=== PATIENT | female | born 1985 | race Caucasian/White ===

== ENCOUNTER 2016-07-17 09:58 | Emergency (ER) | payer MEDICAID ==
[~2016-07-17] VITALS: Ht 162.6 cm; Wt 117.9 kg
[2016-07-17 10:02] VITALS: BP 120/70; PULSE 78; RESP 16; TEMP 97.7; O2SAT 99
--- NOTE | 2016-07-17 10:05 | NUR ---
ambulated to bed 8
--- NOTE | 2016-07-17 10:10 | NUR ---
ER at bedside examining patient.
--- NOTE | 2016-07-17 10:11 | NUR ---
Pt presents to ED c/o intermittent L knee pain w/ambulation.Pt denies significant med hx.Pt reports stepping down from stool on to Knee causing pain.
--- NOTE | 2016-07-17 10:17 | NUR ---
pt ambulated to restroom slow steady gait.
--- NOTE | 2016-07-17 10:30 | NUR ---
Pt tolerated immobilizer.
[2016-07-17 10:57] VITALS: BP 120/70; PULSE 78; RESP 16; TEMP 97.7; O2SAT 99
--- NOTE | 2016-07-17 10:57 | NUR ---
Patient given written and verbal discharge instructions and verbalizes understanding. ER MD discussed with patient the results and treatment provided. Given copies of tests performed in ER. Patient in stable condition. ID arm band removed. Patient educated on pain management and to follow up with PMD. Pain Scale 0. Opportunity for questions provided and answered.
== END 2016-07-17 10:57 | disposition home or self-care (01) ==
LOC: SED 09:58
DX: S83.92XA Sprain of unspecified site of left knee, initial encounter (principal); X50.1XXA Overexertion from prolonged static or awkward postures, initial encounter; Y93.89 Activity, other specified; Y92.89 Other specified places as the place of occurrence of the external cause; Y99.8 Other external cause status
CPT/HCPCS: 73560-TC; 81025; 99284

== ENCOUNTER 2018-03-09 17:06 | Emergency (ER) | payer MEDICAID ==
[~2018-03-09] VITALS: Ht 160 cm; Wt 117.9 kg
[2018-03-09 17:11] VITALS: BP_SYST 127
--- NOTE | 2018-03-09 17:16 | NUR ---
Pt placed in bed 8
--- NOTE | 2018-03-09 17:20 | NUR ---
Patient complaining of 5 episodes of hematuria this morning. Denies any burning or pain with urination. Denies any abdominal pain, nausea, vomiting or diarrhea. No other complaints/injuries per patient or as noted. Will continue to monitor.
--- NOTE | 2018-03-09 17:25 | NUR ---
LORI Tran at bedside examining patient.
--- NOTE | 2018-03-09 17:30 | NUR ---
Urine specimen collected and analyzed in ER. Results given to ER .
[2018-03-09 17:33] VITALS: BP_SYST 127
--- NOTE | 2018-03-09 17:33 | NUR ---
Patient given written and verbal discharge instructions and verbalizes understanding. ER MD discussed with patient the results and treatment provided. Patient in stable condition. ID arm band removed. Rx of Macrodantin and pyridium given. Patient educated on pain management and to follow up with PMD in 2-3 days. Pain Scale 0/10 Opportunity for questions provided and answered. Medication side effect fact sheet provided.
== END 2018-03-09 17:33 | disposition home or self-care (01) ==
LOC: SED 17:06
DX: N39.0 Urinary tract infection, site not specified (principal); E78.5 Hyperlipidemia, unspecified
CPT/HCPCS: 99283

== ENCOUNTER 2018-06-24 16:32 | Emergency (ER) | payer MEDICAID ==
[~2018-06-24] VITALS: Ht 162.6 cm; Wt 113.4 kg
[2018-06-24 16:45] VITALS: BP_SYST 120
== END 2018-06-24 17:20 | disposition home or self-care (01) ==
LOC: SED 16:32
DX: L02.413 Cutaneous abscess of right upper limb (principal); E78.5 Hyperlipidemia, unspecified
CPT/HCPCS: 99283

== ENCOUNTER 2019-04-21 23:10 | Emergency (ER) | payer MEDICAID ==
[~2019-04-21] VITALS: Ht 162.6 cm; Wt 122.5 kg
[2019-04-21 23:15] VITALS: BP_SYST 125
--- NOTE | 2019-04-21 23:20 | NUR ---
Placed in room 4 . Placed on radiation monitor, blood pressure machine and pulse oximeter. To gown for exam. Side rails up. Report given to Joshua OSMAN.
--- NOTE | 2019-04-21 23:25 | NUR ---
Pt ambulates into ER bed with c/o fever, chills, cough, sore throat and intermittent nausea and vomiting. Pt states symptoms began approximately a week ago. Pt states stools are soft. Pt states throat pain is 5/10. Pt denies SOB and chest pain. Pt states she did not get flu shot this season.
--- NOTE | 2019-04-21 23:27 | NUR ---
ER at bedside examining patient.
[2019-04-22 01:16] VITALS: BP_SYST 114
--- NOTE | 2019-04-22 01:16 | NUR ---
Patient given written and verbal discharge instructions and verbalizes understanding. ER MD Lopez discussed with patient the results and treatment provided. Patient in stable condition. ID arm band removed. Rx of azithromycin and promethazine given. Patient educated on pain management and to follow up with PMD. Pain Scale 2/10. Opportunity for questions provided and answered. Medication side effect fact sheet provided.
== END 2019-04-22 01:16 | disposition home or self-care (01) ==
LOC: SED 23:10
DX: J02.9 Acute pharyngitis, unspecified (principal); R03.0 Elevated blood-pressure reading, without diagnosis of hypertension; E78.5 Hyperlipidemia, unspecified; Z87.19 Personal history of other diseases of the digestive system
CPT/HCPCS: 36415; 86710; 99283

== ENCOUNTER 2019-07-01 09:27 | Emergency (ER) | payer MEDICAID ==
[~2019-07-01] VITALS: Ht 162.6 cm; Wt 135.2 kg
[2019-07-01 09:31] VITALS: BP_SYST 128
--- NOTE | 2019-07-01 09:39 | NUR ---
Patient triaged and placed in waiting room. VSS and patient appears in no acute distress at this time. Awaiting available bed, and MD notified of need for MSE.
[2019-07-01 10:20] LABS: BILIRUBIN,URINE 2+ (NEGATIVE); BLOOD, URINE 3+ (NEGATIVE); CLARITY/URINE CLEAR (CLEAR); COLOR,URINE RED (YELLOW); GLUCOSE,URINE NEGATIVE (NEGATIVE); KETONES,URINE NEGATIVE (NEGATIVE); LEUKOCYTE ESTERASE ,URINE 3+ (NEGATIVE); NITRITE, URINE POSITIVE (NEGATIVE); PROTEIN URINE 2+ (NEGATIVE); UROBILINOGEN,URINE 0.2 (0.2-1.0)
[2019-07-01 10:22] LABS: HCG,QUAL RESULT NEGATIVE (NEGATIVE)
--- NOTE | 2019-07-01 10:28 | NUR ---
Patient to ER bed 3 to gown for evaluation. Side rails up. Report given to JACQUI Pak.
--- NOTE | 2019-07-01 10:30 | NUR ---
ER at bedside examining patient.
--- NOTE | 2019-07-01 10:40 | NUR ---
pt arrives from home w/ c/o dysuria and blood in the urine. Pt is currently afebrile.
[2019-07-01 10:52] LABS: BACTERIA,URINE FEW /HPF (None Seen); RBC,URINE 20-50 /HPF (0-3); WBC,URINE 50-80 /HPF (0-3)
--- NOTE | 2019-07-01 11:00 | NUR ---
medicated the pt w/ Macrodid and Pyridium per MD order.
--- NOTE | 2019-07-01 11:13 | NUR ---
Patient given written and verbal discharge instructions and verbalizes understanding. ER MD discussed with patient the results and treatment provided. Patient in stable condition. ID arm band removed. Rx of pyridium and macrobid given. Patient educated on pain management and to follow up with PMD. Pain Scale 0/10. Opportunity for questions provided and answered. Medication side effect fact sheet provided.
[2019-07-01 11:20] VITALS: BP_SYST 128
[2019-07-01] MEDS ORDERED: PHENAZOPYRIDINE HCL 100 MG TABLET ONE (11:37)
== END 2019-07-01 11:20 | disposition home or self-care (01) ==
LOC: SED 09:27
DX: N39.0 Urinary tract infection, site not specified (principal); F41.9 Anxiety disorder, unspecified; E78.5 Hyperlipidemia, unspecified
CPT/HCPCS: 81000-TC; 81025; 84703; 87086; 99283

== ENCOUNTER 2021-05-16 18:37 | Emergency (ER) | payer MEDICAID, SELFPAY ==
[~2021-05-16] VITALS: Ht 167.6 cm; Wt 136.1 kg
[2021-05-16 18:53] VITALS: BP_SYST 146
--- NOTE | 2021-05-16 19:00 | NUR ---
triaged in tent
== END 2021-05-16 19:00 | disposition left against medical advice (07) ==
LOC: SED 18:37
DX: Z53.21 Procedure and treatment not carried out due to patient leaving prior to being seen by health care provider (principal)

== ENCOUNTER 2021-09-03 22:04 | Emergency (ER) | payer MEDICAID ==
[~2021-09-03] VITALS: Ht 162.6 cm; Wt 136.1 kg
[2021-09-03 22:22] VITALS: BP_SYST 124
--- NOTE | 2021-09-03 23:09 | NUR ---
Patient to ER bed 2 to gown for evaluation. Side rails up. Report given to TYLER OSMAN .
[2021-09-03 23:32] VITALS: BP_SYST 137
--- NOTE | 2021-09-03 23:34 | NUR ---
Initial assessment by JACQUI Hunt 36yo female PMH depression, HLD, ulcer collitis, came to ED c/o unusual heavy menstruation this month. Per pt ususally have irregular menstruation, but usually period last for 3 days. Now, is the 4th day of period and pt c/o changing pads every 30 minutes. Pt had 1x big bloot clot came out from vagina. Pt c/o mild discomfort to abd. Denies any different diet/ habit/ steroid intake recently. Ambulate to restroom with steady gait. MD Canas at bed side. pending MD order. Will continue to monitor
[2021-09-03 23:57] LABS: BASOPHILS # (AUTO) 0.1 K/uL (0.0-0.2); BASOPHILS % (AUTO) 0.7 % (0.0-2.0); EOSINOPHILS # (AUTO) 0.1 K/uL (0.0-0.4); EOSINOPHILS % (AUTO) 1.4 % (0.0-4.0); HEMATOCRIT 37.3 % (36-48); HEMOGLOBIN 12.6 g/dL (12.0-16.0); LYMPHOCYTES # (AUTO) 3.7 K/uL (1.0-5.5); LYMPHOCYTES % (AUTO) 34.3 % (20.5-51.5); MEAN CORPUSCULAR HEMOGLOBIN 29 pg (27-31); MEAN CORPUSCULAR HGB CONC 34 % (32-36); MEAN CORPUSCULAR VOLUME 84 fL (79.0-98.0); MONOCYTES # (AUTO) 0.6 K/uL (0.0-1.0); MONOCYTES % (AUTO) 5.2 % (1.7-9.3); NEUTROPHILS # (AUTO) 6.3 K/uL (1.8-7.7); NEUTROPHILS % (AUTO) 58.4 % (40.0-70.0); PLATELET COUNT (AUTO) 243 K/uL (130-430); RED BLOOD CELL COUNT(AUTO) 4.43 MIL/uL (4.2-6.2); RED CELL DISTRIBUTION WIDTH 13.1 % (9.0-15.0); WHITE BLOOD COUNT (AUTO) 10.7 K/uL (4.8-10.8)
[2021-09-04 00:11] LABS: CREATININE 0.75 mg/dL (0.55-1.30); POTASSIUM 3.4 mmol/L (3.5-5.1)
[2021-09-04 00:17] LABS: ALBUMIN 3.6 g/dL (3.4-4.8); TOTAL BILIRUBIN 0.1 mg/dL (0.0-1.0)
[2021-09-04 00:32] LABS: BILIRUBIN,URINE NEGATIVE (NEGATIVE); BLOOD, URINE 3+ (NEGATIVE); CLARITY/URINE CLEAR (CLEAR); GLUCOSE,URINE NEGATIVE (NEGATIVE); KETONES,URINE NEGATIVE (NEGATIVE); LEUKOCYTE ESTERASE ,URINE NEGATIVE (NEGATIVE); NITRITE, URINE NEGATIVE (NEGATIVE); PROTEIN URINE TRACE (NEGATIVE); UROBILINOGEN,URINE 0.2 (0.2-1.0)
[2021-09-04 00:43] LABS: COLOR,URINE RED (YELLOW)
--- NOTE | 2021-09-04 00:56 | NUR ---
Urine test request by JACQUI Hunt Following up MD Missael yan, call lab, spoke with Leonor, requested urine to be done at lab, as UA sample already sent to lab.
--- NOTE | 2021-09-04 01:01 | NUR ---
Pt off unit documented by maria l OSMAN Pt currently off unit, taken to US
[2021-09-04 01:32] LABS: HCG,QUAL RESULT NEGATIVE (NEGATIVE)
--- NOTE | 2021-09-04 02:04 | NUR ---
Pelvic exam documented by JACQUI lisa Pelvic exam done by MD Canas chaperoned by JACQUI Lisa at bed side.
[2021-09-04] MEDS ORDERED: NAPR-686 PO (02:16)
--- NOTE | 2021-09-04 03:23 | NUR ---
Discharged note by JACQUI Hunt Patient given written and verbal discharge instructions and verbalizes understanding. ER MD discussed with patient the results and treatment provided. Patient in stable condition. ID arm band removed. IV catheter removed intact and dressing applied, no active bleeding. Rx of 1 given. Patient educated on pain management and to follow up with PMD. Pain Scale . Opportunity for questions provided and answered. Medication side effect fact sheet provided.
== END 2021-09-04 03:24 | disposition home or self-care (01) ==
LOC: SED 22:04
DX: N92.0 Excessive and frequent menstruation with regular cycle (principal)
CPT/HCPCS: 36415; 80053; 81003; 83690; 84703; 85025; 99283; 99284

== ENCOUNTER 2023-05-16 10:45 | Emergency (ER) | payer MEDICAID ==
[~2023-05-16] VITALS: Ht 162.6 cm; Wt 136.1 kg
[~2023-05-16 10:45] MED LIST: NAPR-686 PO
[2023-05-16 10:50] VITALS: BP_SYST 163; PULSE 89; RESP 18; TEMP 97.1; O2SAT 98
[2023-05-16] MEDS ORDERED: CEPH-548 PO (11:11)
[2023-05-16] MEDS ORDERED: IBUP-1969 PO (11:11)
== END 2023-05-16 11:46 | disposition home or self-care (01) ==
LOC: SED 10:45
DX: M27.2 Inflammatory conditions of jaws (principal); Z79.899 Other long term (current) drug therapy
CPT/HCPCS: 99283

== ENCOUNTER 2023-06-15 17:52 | Emergency (ER) | payer MEDICAID ==
[~2023-06-15] VITALS: Ht 162.6 cm; Wt 136.1 kg
[~2023-06-15 17:52] MED LIST changes: +CEPH-548 PO; +IBUP-1969 PO
[2023-06-15 17:55] VITALS: BP_SYST 158; PULSE 89; RESP 18; TEMP 98.3; O2SAT 97
[2023-06-15] MEDS ORDERED: IBUP-1969 PO (18:59)
[2023-06-15] MEDS ORDERED: AMOX-423 PO (18:59)
[2023-06-15] MEDS ORDERED: CORTEARS LEFT EAR (18:59)
== END 2023-06-15 19:03 | disposition home or self-care (01) ==
LOC: SED 17:52
DX: H60.92 Unspecified otitis externa, left ear (principal); E78.5 Hyperlipidemia, unspecified; Z79.899 Other long term (current) drug therapy
CPT/HCPCS: 99283

== ENCOUNTER 2023-10-09 20:21 | Emergency (ER) | payer MEDICAID ==
[~2023-10-09] VITALS: Ht 162.6 cm; Wt 136.1 kg
[~2023-10-09 20:21] MED LIST changes: +AMOX-423 PO; +CORTEARS LEFT EAR
[2023-10-09 20:36] VITALS: BP_SYST 152; PULSE 92; RESP 16; TEMP 97.1; O2SAT 99
[2023-10-09] MEDS ORDERED: ACET1TAB93 PO (20:42)
[2023-10-09 20:56] VITALS: BP_SYST 152; PULSE 92; RESP 16; TEMP 97.1; O2SAT 99
== END 2023-10-09 20:57 | disposition home or self-care (01) ==
LOC: SED 20:21
DX: H92.02 Otalgia, left ear (principal); H61.22 Impacted cerumen, left ear; J32.9 Chronic sinusitis, unspecified; E78.5 Hyperlipidemia, unspecified; F32.A Depression, unspecified; F41.9 Anxiety disorder, unspecified; Z79.899 Other long term (current) drug therapy; Z79.2 Long term (current) use of antibiotics
CPT/HCPCS: 99283

== ENCOUNTER 2024-01-31 13:00 | Emergency (ER) | payer MEDICAID ==
[~2024-01-31] VITALS: Ht 162.6 cm; Wt 136.1 kg
[2024-01-31 13:05] VITALS: BP_SYST 131; PULSE 86; RESP 21; TEMP 98.2; O2SAT 98
[2024-01-31 14:26] LABS: BILIRUBIN,URINE NEGATIVE (NEGATIVE); BLOOD, URINE NEGATIVE (NEGATIVE); CLARITY/URINE CLEAR (CLEAR); COLOR,URINE YELLOW (YELLOW); GLUCOSE,URINE NEGATIVE (NEGATIVE); KETONES,URINE NEGATIVE (NEGATIVE); LEUKOCYTE ESTERASE ,URINE NEGATIVE (NEGATIVE); NITRITE, URINE NEGATIVE (NEGATIVE); PROTEIN URINE NEGATIVE (NEGATIVE); UROBILINOGEN,URINE 0.2 (0.2-1.0)
[2024-01-31 14:26] LABS: BASOPHILS % (AUTO) 0.6 % (0.0-2.0); EOSINOPHILS # (AUTO) 0.2 K/uL (0.0-0.4); EOSINOPHILS % (AUTO) 2.7 % (0.0-4.0); HEMATOCRIT 25.1 % (36-48); LYMPHOCYTES # (AUTO) 2.4 K/uL (1.0-5.5); LYMPHOCYTES % (AUTO) 32.2 % (20.5-51.5); MEAN CORPUSCULAR HEMOGLOBIN 19 pg (27-31); MEAN CORPUSCULAR HGB CONC 29 % (32-36); MEAN CORPUSCULAR VOLUME 65 fL (79.0-98.0); MONOCYTES # (AUTO) 0.4 K/uL (0.0-1.0); MONOCYTES % (AUTO) 5.1 % (1.7-9.3); NEUTROPHILS # (AUTO) 4.4 K/uL (1.8-7.7); NEUTROPHILS % (AUTO) 59.4 % (40.0-70.0); PLATELET COUNT (AUTO) 329 K/uL (130-430); RED BLOOD CELL COUNT(AUTO) 3.88 MIL/uL (4.2-6.2); RED CELL DISTRIBUTION WIDTH 17.7 % (9.0-15.0); WHITE BLOOD COUNT (AUTO) 7.4 K/uL (4.8-10.8)
[2024-01-31 14:36] LABS: HEMOGLOBIN 7.4 g/dL (12.0-16.0)
[2024-01-31 14:53] LABS: INR 0.9 (0.8-1.2); PROTHROMBIN TIME 9.9 SECS (9.5-12.5)
[2024-01-31 14:55] LABS: ALANINE AMINOTRANSFERASE 29 U/L (12-78); ALBUMIN 3.4 g/dL (3.4-4.8); ANION GAP 8 (5-15); ASPARTATE AMINOTRANSFERASE 21 U/L (10-37); BILIRUBIN,DIRECT 0.1 mg/dL (0.0-0.3); CALCIUM 8.5 mg/dL (8.4-11.0); CARBON DIOXIDE 29 mmol/L (23-29); CHLORIDE 105 mmol/L (98-107); CREATINE KINASE, TOTAL 67 U/L (26-192); CREATININE 0.67 mg/dL (0.55-1.30); GFR AFRICAN AMERICAN 125 mL/min (>90); GLUCOSE 99 mg/dL (74-106); POTASSIUM 3.3 mmol/L (3.5-5.1); SODIUM SERUM 142 mmol/L (136-145); TOTAL BILIRUBIN 0.8 mg/dL (0.0-1.0); TOTAL PROTEIN, SERUM 7.3 g/dL (6.4-8.3); UREA NITROGEN, BLOOD 8 mg/dL (8-21)
[2024-01-31 15:05] LABS: GFR NON AFRICAN-AMERICAN 104 mL/min (>90)
[2024-01-31] MEDS ORDERED: FERR236T3 PO (15:52)
[2024-01-31 16:05] VITALS: BP_SYST 140; PULSE 84; RESP 21; TEMP 98.2; O2SAT 98
== END 2024-01-31 16:05 | disposition home or self-care (01) ==
LOC: SED 13:00
DX: D64.9 Anemia, unspecified (principal); R06.02 Shortness of breath; I10 Essential (primary) hypertension; E78.00 Pure hypercholesterolemia, unspecified
CPT/HCPCS: 36415; 71045; 80048; 80076; 81001; 81003; 82550; 83605; 84484; 85025; 85610; 85730; 99285